=== PATIENT | female | born 1970 | race African-American/Black ===

== ENCOUNTER 2017-12-14 13:29 | Emergency (ER) | payer MEDICAID ==
[~2017-12-14] VITALS: Ht 165.1 cm; Wt 69.1 kg
[2017-12-14] MEDS ORDERED: HYDR25TA PO (13:47)
[2017-12-14] MEDS ORDERED: HYDROCHLOROTHIAZIDE 25 MG TABLET PO ONE (14:30)
[2017-12-14 14:37] VITALS: BP 179/117
== END 2017-12-14 14:39 | disposition home or self-care (01) ==
LOC: EMS 13:31
DX: I10 Essential (primary) hypertension (principal)
CPT/HCPCS: 99283